=== PATIENT | female | born 1995 | race Caucasian/White ===

== ENCOUNTER 2018-03-23 09:22 | Emergency (ER) | payer OTHER ==
[2018-03-23 09:49] VITALS: BP 110/73
--- NOTE | 2018-03-23 10:25 | ED ---
Lower Extremity - HPI Summary HPI Summary: 22 yr old female with the complaint of right foot pain. Onset yesterday when she kicked a soccer ball. 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 pain is moderate and worse with bearing weight. - History of Current Complaint Chief Complaint: UCLowerExtremity Stated Complaint: RIGHT FOOT INJURY Time Seen by Provider: 03/23/18 09:57 Hx Last Menstrual Period: 03/02/18 Pain Intensity: 10 - Allergies/Home Medications Allergies/Adverse Reactions: Allergies Allergy/AdvReac Type Severity Reaction Status Date / Time No Known Allergies Allergy Verified 03/23/18 09:43 Home Medications: Home Medications Control Pill 1 tab PO DAILY 03/23/18 [History Confirmed 03/23/18] Ibuprofen TAB* [Advil TAB*] 400 mg PO Q6H PRN 03/23/18 [History Confirmed ] PMH/Surg Hx/FS Hx/Imm Hx Respiratory History: Reports: Hx Asthma - Surgical History Surgery Procedure, Year, and Place: Bilateral foot surgery. tonsillectomy Infectious Disease History: No Infectious Disease History: Denies: Traveled Outside the [place] in Last 30 Days - Family History Known Family History: Positive: None - Social History Alcohol Use: None Substance Use Type: Reports: None Smoking Status (MU): Never Smoked Tobacco Review of Systems Constitutional: Negative Positive: Other - foot pain All Other Systems Reviewed And Are Negative: Yes Physical Exam Triage Information Reviewed: Yes Vital Signs On Initial Exam: Initial Vitals Temp Pulse Resp BP Pulse Ox 99.3 F 88 18 110/73 98 03/23/18 09:41 03/23/18 09:41 03/23/18 09:41 03/23/18 09:41 03/23/18 09:41 Vital Signs Reviewed: Yes Appearance: Positive: Well-Appearing, No Pain Distress Skin: Positive: Warm Head/Face: Positive: Normal Head/Face Inspection Eyes: Positive: EOMI ENT: Positive: Normal ENT inspection Neck: Positive: Supple Respiratory/Lung Sounds: Positive: Clear to Auscultation, Breath Sounds Present Cardiovascular: Positive: RRR. Negative: Murmur Musculoskeletal: Positive: Other - there is mild STS right upper medial foot with slight bruising. Mild tenderness as well and this is more dorsal than her old scar over the medial side of the foot, but only about 2.5 cm away from the scar area. Neurological: Positive: Sensory/Motor Intact, Alert, Oriented to Person Place, Time, CN Intact II-III Psychiatric: Positive: Normal - [place] Coma Scale Best Eye Response: 4 - Spontaneous Best Motor Response: 6 - Obeys Commands Best Verbal Response: 5 - Oriented Coma Scale Total: 15 Diagnostics - Vital Signs Vital Signs Temp Pulse Resp BP Pulse Ox 03/23/18 09:41 99.3 F 88 18 110/73 98 - Laboratory Lab Statement: Any lab studies that have been ordered have been reviewed, and results considered in the medical decision making process. - Radiology right foot Xray Interpretation: No Acute Changes Radiology Interpretation Completed By: Radiologist Lower Extremity Course/Dx - Course Course Of Treatment: 22 yr old with prior foot surgery and new injury, but neg xray. She has appointment with her foot surgeon at 8 am tomorrow in [place]. copy of xrays given. - Diagnoses Provider Diagnoses: Foot pain, right Discharge - Sign-Out/Discharge Documenting (check all that apply): Discharge/Admit/Transfer - Discharge Plan Condition: Good Disposition: HOME Patient Education Materials: Foot Sprain (ED), Foot Contusion (ED) Referrals: Non Staff,Doctor [Primary Care Provider] - Ernesto Cedeno MD [Medical Doctor] - Additional Instructions: See your orthopedic, court specialist at your appointment tomorrow in [place] at 8 am. - Billing Disposition and Condition Condition: GOOD Disposition: HOME
--- NOTE | 2018-03-23 10:28 | RAD ---
Indication: Pain across the dorsum of the RIGHT foot after kicking soccer ball yesterday. Previous injury with surgery in 2015. Comparison: No relevant prior exams available on the [facility] PACS for comparison. Technique: AP, lateral, and oblique views RIGHT foot. REPORT AND IMPRESSION: Solitary surgical anchor at the medial margin of the navicula most consistent with a posterior tibial tendon insertion anchor. Negative for fracture or malalignment. No radiographic findings of stress reaction. Mild soft tissue swelling over the medial aspect of the hind and midfoot.
== END 2018-03-23 11:20 | disposition home or self-care (01) ==
LOC: UCCORT 09:22
DX: M79.671 Pain in right foot (principal); Z98.890 Other specified postprocedural states
CPT/HCPCS: 99203; G0463

== ENCOUNTER 2018-05-13 13:16 | Emergency (ER) | payer OTHER ==
[2018-05-13] MEDS ORDERED: NS 0.9% 1000 ML* 1,000 ML IV ONE (13:46)
[2018-05-13] MEDS ORDERED: cefTRIAXone VIAL(*) 1,000 MG VIAL IVPB ONE (13:46)
[2018-05-13] MEDS ORDERED: Ketorolac INJ* 30 MG/ML 1 ML VIAL IV PUSH ONE (13:47)
--- NOTE | 2018-05-13 13:59 | UC ---
Complaint Female HPI - HPI Summary HPI Summary: Suprapubic pain started suddenly while at work going to the [place] to urinate. She says she had been totally fine until then. She denies any recent dysuria, vomiting, fever, gynecologic symptoms, discharge, pain with intercourse. She is monogamous, on ocp, and does not use condoms. She has a hx of terminted by elective . Today she has had gross hematuria. She denies any prior abd surgeries. - History Of Current Complaint Chief Complaint: UCAbdominalPain Stated Complaint: PERSONAL Time Seen by Provider: 05/13/18 13:31 Hx Obtained From: Patient Hx Last Menstrual Period: 05/01/18 Onset/Duration: Sudden Onset, Lasting Hours Timing: Constant, Lasting Hours Severity Initially: Severe Severity Currently: Severe Pain Intensity: 10 Character: Sharp, Cramping Aggravating Factor(s): Nothing Alleviating Factor(s): Nothing Associated Signs And Symptoms: Negative: Vaginal Bleeding/Discharge, Vaginal Discharge, Nausea, Vomiting(# Of Episodes =), Genital Swelling, Genital Blisters , Retained Foregin Body (Specify) - Allergies/Home Medications Allergies/Adverse Reactions: Allergies Allergy/AdvReac Type Severity Reaction Status Date / Time No Known Allergies Allergy Verified 05/13/18 13:28 PMH/Surg Hx/FS Hx/Imm Hx Previously Healthy: No - elective termination of preg. - Surgical History Surgical History: Yes Surgery Procedure, Year, and Place: Bilateral foot surgery. tonsillectomy - Family History Known Family History: Positive: None - Social History Alcohol Use: None Substance Use Type: None Smoking Status (MU): Never Smoked Tobacco Review of Systems Constitutional: Fever Genitourinary: Dysuria - dysuria started early this morning. suprapubic pain started about 1/2 hour ago., Hematuria All Other Systems Reviewed And Are Negative: Yes Physical Exam Triage Information Reviewed: Yes Appearance: Well-Nourished, Pain Distress Vital Signs: Initial Vital Signs Temp 100.2 F 05/13/18 13:25 Pulse 105 05/13/18 13:25 Resp 19 05/13/18 13:25 BP 123/90 05/13/18 13:25 Pulse Ox 100 05/13/18 13:25 Vital Signs Reviewed: Yes Eye Exam: Normal Eyes: Positive: Conjunctiva Clear ENT: Positive: Normal ENT inspection Neck exam: Normal Neck: Positive: Supple, Nontender, No Lymphadenopathy. Negative: Nuchal Rigidity Respiratory: Positive: Normal breath sounds, No respiratory distress, No accessory muscle use. Negative: Respiratory distress, Decreased breath sounds, Accessory muscle use, Crackles, Rhonchi, Stridor, Wheezing Cardiovascular: Positive: No Murmur, Pulses Normal, Brisk Capillary Refill Abdomen Description: Positive: No Organomegaly, Soft. Negative: Distended, Guarding Pelvic Exam: Positive: External Exam Normal, Speculum Exam Normal, Bimanual Exam Normal, No Cerv. Motion Tender, No Masses, Discharge - thin milkly discharge.. Negative: Active Bleeding, Blood, Cervicitis, Lesions, Mass, Tender w/ Cervical Motion, Tender Adnexa, Tender Uterus Musculoskeletal: Positive: Strength Intact, ROM Intact, No Edema Neurological: Positive: Alert, Muscle Tone Normal. Negative: Fatigued Psychological: Positive: Age Appropriate Behavior Skin: Negative: rashes Complaint Female Dx - Course Course Of Treatment: severe sudden pelvic pain 09/09 suggests possible passage of kidney stone. We will also look for hydronephrosis as there are signs of infection and we would want to make sure she does not have infected kidney or stone. However, she does not have flank tenderness nor flank pain or vomiting. We will aggressively work up and manage including IVF and rocephin. Pelvic exam was benign except for copious thin dischage. Trichomonas is also a possibility. No tenderness to suggest PID or toboovarian abcess. Sonograms pending. Sonograms normal. UA reviewed. On re exam, she has suprapubic tenderness but HR is now 96. She is more comfortable appearing and states she feels better. She agrees to return here tomorrow for re eval. She voices understanding and nurses witness. She has no need for ureter stent and no signs of ectopic or abcess. - Differential Dx/Diagnosis Provider Diagnoses: uti. hematuria. abd pain Discharge - Sign-Out/Discharge Documenting (check all that apply): Discharge/Admit/Transfer - Discharge Plan Condition: Good Disposition: HOME Prescriptions: DOXYcycline CAP(*) [DOXYcycline 100MG CAP(*)] 100 mg PO BID #20 cap Patient Education Materials: Hematuria (ED) Referrals: Non Staff,Doctor [Primary Care Provider] - López Talley MD [Medical Doctor] - 2 Days Additional Instructions: REturn here tomorrow for re eval. - Billing Disposition and Condition Condition: GOOD Disposition: Home
--- NOTE | 2018-05-13 14:28 | RAD ---
INDICATION: Pelvic pain and hematuria. COMPARISON: There are no prior studies available for comparison. TECHNIQUE: Multiple real-time images of the kidneys were obtained. FINDINGS: The kidneys are normal in size shape and echogenicity. The right kidney measured 10.6 x 4.7 x 6.0 cm and the left kidney measured 10.1 x 4.1 x 4.3 cm. No significant focal abnormality or hydronephrosis is seen. IMPRESSION: NO EVIDENCE FOR HYDRONEPHROSIS.
--- NOTE | 2018-05-13 14:29 | RAD ---
HISTORY: pelvic pain, eval for tuboovarian abscess. COMPARISONS: None TECHNIQUE: Multiple transverse and longitudinal ultrasound images were obtained of the pelvis using grayscale and color Doppler imaging using the transabdominal transducer. FINDINGS: UTERUS: The uterus measures 6.9 x 4.2 x 5.6 cm. The uterus is normal in shape, size, contour, and echotexture. ENDOMETRIUM: The endometrial stripe is smooth. The endometrium measures 0.7 cm in thickness. CUL-DE-SAC: There is no free fluid within the cul-de-sac. RIGHT OVARY: The right ovary measures 3.1 x 1.9 x 2.7 cm. Normal arterial and venous waveforms are identifiable within the ovary on spectral Doppler imaging. LEFT OVARY: The left ovary measures 2.7 x 1.2 x 2.8 cm. Normal arterial and venous waveforms are identifiable within the ovary on spectral Doppler imaging. There is a 1.6 x 1.1 x 1.7 cm simple left ovarian cyst. BLADDER: The bladder is not well visualized. OTHER: None IMPRESSION: 1. 1.7 CM SIMPLE LEFT OVARIAN CYST. 2. NO SONOGRAPHIC FEATURES OF TORSION. PLEASE NOTE THAT PARTIAL OR INTERMITTENT TORSION MAY BE SONOGRAPHICALLY NORMAL.
[2018-05-13 16:03] VITALS: BP 106/72
[2018-05-13 19:51] LABS: ABS Basophils 0 10^3/ul (0-0.2); ABS Eosinophils 0.1 10^3/ul (0-0.6); ABS Lymphocytes 1.9 10^3/ul (1.0-4.8); ABS Monocytes 0.5 10^3/ul (0-0.8); ABS Neutrophils 4.8 10^3/ul (1.5-7.7); ABS Nucleated RBC 0 10^3/ul; Eosinophil % 0.8 % (0-6); Hematocrit 40 % (35-47); Hemoglobin 13.6 g/dl (12.0-16.0); Lymphocyte % 25.6 % (25-47); Mean Corpuscular HGB Conc 34 g/dl (31-36); Mean Corpuscular Hemoglobin 29 pg (27-31); Mean Corpuscular Volume 86 fL (80-97); Mean Platelet Volume 8.2 um3 (7.4-10.4); Nucleated Red Blood Cells % 0.1; Platelet Count 238 10^3/ul (150-450); Red Blood Count 4.67 10^6/ul (4.00-5.40); Red Cell Distribution Width 13 % (10.5-15); White Blood Count 7.3 10^3/ul (3.5-10.8)
[2018-05-13 20:00] LABS: EGFR Non-African American 88.9 (>60)
--- NOTE | 2018-05-15 11:43 | UC ---
- Progress Note Progress Note: RN to call pt. + bact vaginosis, + daniel. Rx metrogel, Rx diflucan. Discharge - Sign-Out/Discharge Documenting (check all that apply): Post-Discharge Follow Up - Discharge Plan Condition: Good Disposition: HOME Prescriptions: DOXYcycline CAP(*) [DOXYcycline 100MG CAP(*)] 100 mg PO BID #20 cap Fluconazole [Diflucan 150 MG (NF)] 150 mg PO DAILY #2 tab metroNIDAZOLE VAGINAL 0.75%* 1 applic VAGINAL BEDTIME #2 tube Patient Education Materials: Hematuria (ED) Forms: *Work Release Referrals: Non Staff,Doctor [Primary Care Provider] - López Talley MD [Medical Doctor] - 2 Days Additional Instructions: REturn here tomorrow for re eval. - Billing Disposition and Condition Condition: GOOD Disposition: Home
== END 2018-05-13 16:10 | disposition home or self-care (01) ==
LOC: UCCORT 13:16
DX: N39.0 Urinary tract infection, site not specified (principal); R31.0 Gross hematuria; R10.9 Unspecified abdominal pain
CPT/HCPCS: 36415; 76775; 76856; 80053; 81003; 84702; 85025; 87077; 87086; 87480; 87491; 87510; 87591; 87660; 87661; 96361; 96365; 96375; 99212; G0463; J0696; J1885

== ENCOUNTER 2018-06-30 08:08 | Emergency (ER) | payer OTHER ==
[2018-06-30 08:23] VITALS: BP 122/84
--- NOTE | 2018-06-30 09:41 | UC ---
Back Pain HPI - HPI Summary HPI Summary: lower back pain x 3 days hx of chronic back pain , been worse for the past 3 days. no known injury pain is sharp , no radiation of the pain . no fever, no chills, no n/v/d/c , no urinary sx has been having light pink discharge, has been missing her BCP - History of Current Complaint Chief Complaint: UCGU Stated Complaint: BACK PAIN/PERSONAL Time Seen by Provider: 06/30/18 08:21 Hx Obtained From: Patient Hx Last Menstrual Period: 06/09/18 Onset/Duration: Gradual Onset, Lasting Days - 3, Still Present Timing: Constant Severity Initially: Severe Severity Currently: Severe Pain Intensity: 7 Pain Scale Used: 0-10 Numeric Back Pain: Is Discrete @ - lower back pain Character: Sharp Aggravating Factor(s): Movement, Lifting, Bending, Walking, Cough Alleviating Factor(s): Rest Associated Signs And Symptoms: Negative: Swelling, Redness, Bruising, Fever, Weakness, Numbness, Tingling, Abdominal Pain, Flank Pain, Bladder Incontinence, Bowel Incontinence - Allergies/Home Medications Allergies/Adverse Reactions: Allergies Allergy/AdvReac Type Severity Reaction Status Date / Time No Known Allergies Allergy Verified 05/13/18 13:28 PMH/Surg Hx/FS Hx/Imm Hx - Additional Past Medical History Additional PMH: chronic back pain - Surgical History Surgical History: Yes Surgery Procedure, Year, and Place: Bilateral foot surgery. tonsillectomy - Family History Known Family History: Positive: None Negative: Diabetes - Social History Alcohol Use: None Substance Use Type: None Smoking Status (MU): Never Smoked Tobacco Review of Systems Constitutional: Negative Skin: Negative Eyes: Negative ENT: Negative Genitourinary: Abnormal Bleeding Motor: Negative Neurovascular: Negative Musculoskeletal: Myalgia - lower back pain Is Patient Immunocompromised?: No All Other Systems Reviewed And Are Negative: Yes Physical Exam Triage Information Reviewed: Yes Appearance: Well-Appearing, No Pain Distress, Well-Nourished Vital Signs: Initial Vital Signs Temp 98.8 F 06/30/18 08:16 Pulse 87 06/30/18 08:16 Resp 14 06/30/18 08:16 BP 122/84 06/30/18 08:16 Pulse Ox 100 06/30/18 08:16 Vital Signs Reviewed: Yes Eye Exam: Normal Eyes: Positive: Conjunctiva Clear ENT: Positive: Normal ENT inspection, Hearing grossly normal, Pharynx normal Neck exam: Normal Neck: Positive: Supple, Nontender, No Lymphadenopathy Respiratory: Positive: Chest non-tender, Lungs clear, Normal breath sounds, No respiratory distress Cardiovascular: Positive: RRR, No Murmur, Pulses Normal Abdomen Description: Positive: Nontender, Soft. Negative: CVA Tenderness (R), CVA Tenderness (L), Distended, Guarding Bowel Sounds: Positive: Present Musculoskeletal: Positive: Other: - lower back : no swelling, no erythema, + tender to touch, pain with flexion and extension Neurological: Positive: Alert Skin Exam: Normal Back Pain Course/Dx - Differential Dx/Diagnosis Provider Diagnoses: lower back pain. vaginal bleeding Discharge - Sign-Out/Discharge Documenting (check all that apply): Patient Departure - Discharge Plan Condition: Stable Disposition: HOME Prescriptions: Naproxen [Naproxen 500 mg tab] 500 mg PO BID #14 tablet Patient Education Materials: Menorrhagia (ED), Chronic Back Pain (ED) Forms: *Work Release Referrals: No Primary Care Phys,NOPCP [Primary Care Provider] - 7 Days - Billing Disposition and Condition Condition: STABLE Disposition: Home
== END 2018-06-30 09:36 | disposition home or self-care (01) ==
LOC: UCCORT 08:08
DX: M54.5 Low back pain (principal); G89.29 Other chronic pain; N93.9 Abnormal uterine and vaginal bleeding, unspecified
CPT/HCPCS: 81003; 84702; 99212; G0463

== ENCOUNTER 2018-11-26 10:11 | Emergency (ER) | payer OTHER ==
[2018-11-26 13:14] VITALS: BP 117/74
--- NOTE | 2018-11-26 13:33 | UC ---
Back Pain HPI - HPI Summary HPI Summary: Pt presents with c/o "chronic low back pain". Pt denies injury or possible injury due to repeated bending or lifting. Pt denies numbness, tingling or loss f bowel or bladder control. Pt also denies any urinary symptoms. - History of Current Complaint Chief Complaint: UCBackPain Stated Complaint: BACK PAIN Time Seen by Provider: 11/26/18 13:22 Hx Obtained From: Patient Hx Last Menstrual Period: 3 months ago - BC ?: No Onset/Duration: Gradual Onset, Lasting Weeks, Still Present Timing: Constant Severity Initially: Moderate Severity Currently: Severe Pain Intensity: 9 Back Pain: Is Discrete @ - low back Character: Dull, Aching, Stiffness Aggravating Factor(s): Movement Alleviating Factor(s): Nothing Associated Signs And Symptoms: Positive: Negative - Risk Factors AAA Risk Factors: Negative TAD Risk Factors: Negative Cauda Equina Risk Factors: Negative - Allergies/Home Medications Allergies/Adverse Reactions: Allergies Allergy/AdvReac Type Severity Reaction Status Date / Time No Known Allergies Allergy Verified 11/26/18 13:14 PMH/Surg Hx/FS Hx/Imm Hx Previously Healthy: Yes - Surgical History Surgical History: Yes Surgery Procedure, Year, and Place: Bilateral foot surgery. tonsillectomy - Family History Known Family History: Positive: None Negative: Diabetes - Social History Occupation: Employed Full-time Lives: With Family Alcohol Use: None Substance Use Type: None Smoking Status (MU): Never Smoked Tobacco Have You Smoked in the Last Year: No Review of Systems All Other Systems Reviewed And Are Negative: Yes Constitutional: Positive: Negative Skin: Positive: Negative Eyes: Positive: Negative ENT: Positive: Negative Respiratory: Positive: Negative Cardiovascular: Positive: Negative Gastrointestinal: Positive: Negative Genitourinary: Positive: Negative Motor: Positive: Negative Neurovascular: Positive: Negative Musculoskeletal: Positive: Myalgia Psychological: Positive: Negative Is Patient Immunocompromised?: No Physical Exam Triage Information Reviewed: Yes Appearance: Well-Appearing, No Pain Distress - pt is sitting comfortably on exam table and able to move on and off table without difficulty or assistance. Vital Signs: Initial Vital Signs Temp 98.5 F 11/26/18 13:10 Pulse 115 11/26/18 13:10 Resp 20 11/26/18 13:10 BP 117/74 11/26/18 13:10 Pulse Ox 100 11/26/18 13:10 Vital Signs Reviewed: Yes Eye Exam: Normal ENT Exam: Normal Dental Exam: Normal Neck exam: Normal Respiratory Exam: Normal Cardiovascular Exam: Normal Musculoskeletal Exam: Normal Musculoskeletal: Positive: Strength Intact, ROM Intact, No Edema Neurological Exam: Normal Psychological Exam: Normal Skin Exam: Normal Back Pain Course/Dx - Differential Dx/Diagnosis Differential Diagnosis/HQI/PQRI: Herniated Disc, Strain, Sprain Provider Diagnosis: Low back pain Discharge - Sign-Out/Discharge Documenting (check all that apply): Patient Departure All imaging exams completed and their final reports reviewed: No Studies - Discharge Plan Condition: Stable Disposition: HOME Prescriptions: Cyclobenzaprine TAB* [Flexeril 10 MG TAB*] 10 mg PO Q8H PRN #21 tab PRN Reason: Pain Ibuprofen TAB* [Motrin TAB* 800 MG] 800 mg PO Q8H PRN #21 tab PRN Reason: Pain Patient Education Materials: Back Pain (ED), Lower Back Exercises (ED) Referrals: No Primary Care Phys,NOPCP [Primary Care Provider] - [facility] [Outside] - As Soon As Possible - Billing Disposition and Condition Condition: STABLE Disposition: Home - Attestation Statements Provider Attestation: Per institutional requirements, I have reviewed the chart, however, I was not consulted specifically or made aware of this patient by the midlevel provider. I did not personally evaluate, interact with , or disposition this patient.
== END 2018-11-26 13:45 | disposition home or self-care (01) ==
LOC: UCCORT 10:11
DX: M54.5 Low back pain (principal)
CPT/HCPCS: 99212; G0463

== ENCOUNTER 2019-01-10 07:06 | Emergency (ER) | payer OTHER ==
[2019-01-10 07:27] VITALS: BP 106/63
[2019-01-10] MEDS ORDERED: Ibuprofen TAB* 600 MG PO ONE (07:50)
--- NOTE | 2019-01-10 07:52 | UC ---
Throat Pain/Nasal Emanuel HPI - HPI Summary HPI Summary: 23-year-old woman 23-year-old woman comes in with 2 days of sore throat fevers chills. She also has some runny nose and a frontal headache. No chest congestion she does have somewhat of a cough. Not a smoker. No history of asthma. She tried some ibuprofen yesterday that did help with her fever and headache. No stiff neck. Denies generalized myalgias. - History of Current Complaint Chief Complaint: UCGeneralIllness Stated Complaint: THROAT,COUGH Time Seen by Provider: 01/10/19 07:41 Hx Last Menstrual Period: 12/29/18 Pain Intensity: 10 - Allergies/Home Medications Allergies/Adverse Reactions: Allergies Allergy/AdvReac Type Severity Reaction Status Date / Time No Known Allergies Allergy Verified 01/10/19 07:21 PMH/Surg Hx/FS Hx/Imm Hx Previously Healthy: Yes - Surgical History Surgical History: Yes Surgery Procedure, Year, and Place: Bilateral foot surgery. tonsillectomy - Family History Known Family History: Positive: None, Non-Contributory Negative: Diabetes - Social History Alcohol Use: None Substance Use Type: None Smoking Status (MU): Never Smoked Tobacco Have You Smoked in the Last Year: No Review of Systems All Other Systems Reviewed And Are Negative: Yes Constitutional: Positive: Fever, Chills Skin: Positive: Negative Eyes: Positive: Negative ENT: Positive: Sore Throat, Nasal Discharge, Sinus Congestion Respiratory: Positive: Negative Cardiovascular: Positive: Negative Gastrointestinal: Positive: Negative Motor: Positive: Negative Neurovascular: Positive: Negative Musculoskeletal: Positive: Negative Neurological: Positive: Headache Psychological: Positive: Negative Is Patient Immunocompromised?: No Physical Exam Triage Information Reviewed: Yes Appearance: No Pain Distress, Well-Nourished, Ill-Appearing - MILD Vital Signs: Initial Vital Signs Temp 102.4 F 01/10/19 07:22 Pulse 106 01/10/19 07:22 Resp 16 01/10/19 07:22 BP 106/63 01/10/19 07:22 Pulse Ox 100 01/10/19 07:22 Vital Signs Reviewed: Yes Eye Exam: Normal Eyes: Positive: Conjunctiva Clear ENT: Positive: Pharyngeal erythema, Nasal congestion, Nasal drainage, TMs normal Neck exam: Normal Neck: Positive: Supple Respiratory: Positive: Lungs clear, Normal breath sounds, No respiratory distress Cardiovascular: Positive: Tachycardia Musculoskeletal Exam: Normal Musculoskeletal: Positive: Strength Intact, ROM Intact Neurological Exam: Normal Neurological: Positive: Alert, Muscle Tone Normal Psychological Exam: Normal Psychological: Positive: Age Appropriate Behavior Skin Exam: Normal Throat Pain/Nasal Course/Dx - Course Course Of Treatment: DISCUSSED VIRAL VERSES BACTERIAL INFECTION AND THE ROLE OF ANTIBIOTICS. THE PATIENT WISHES TO BE ON ANTIBIOTIC AT THIS TIME. - Differential Dx/Diagnosis Provider Diagnosis: Pharyngitis Discharge - Sign-Out/Discharge Documenting (check all that apply): Patient Departure All imaging exams completed and their final reports reviewed: No Studies - Discharge Plan Condition: Stable Disposition: HOME Prescriptions: Amoxicillin PO (*) [Amoxicillin 500 MG CAP*] 500 mg PO TID #30 cap Patient Education Materials: Pharyngitis (ED), Fever in Adults (ED) Referrals: [facility] [place] [Outside] Additional Instructions: FOLLOW UP WITH YOUR DOCTOR IF NOT COMPLETELY IMPROVED. GET RECHECKED FOR ANY WORSENING OF YOUR CONDITION OR QUESTIONS OR CONCERNS. - Billing Disposition and Condition Condition: STABLE Disposition: Home
== END 2019-01-10 07:58 | disposition home or self-care (01) ==
LOC: UCCORT 07:06
DX: J02.9 Acute pharyngitis, unspecified (principal); R09.81 Nasal congestion
CPT/HCPCS: 87651; 99212; A9270-GY; G0463

== ENCOUNTER 2019-07-16 09:49 | Emergency (ER) | payer SELFPAY ==
--- NOTE | 2019-07-16 10:02 | UC ---
Ear Complaint HPI - HPI Summary HPI Summary: 23-year-old female who has bilateral ear pain, mild scratchy throat, irritated eyes. - History of Current Complaint Stated Complaint: NASAL/BILATERAL EYE AND EAR COMPLAINT Time Seen by Provider: 07/16/19 10:01 Hx Obtained From: Patient Hx Last Menstrual Period: 12/29/18 ?: No Onset/Duration: Gradual Onset Severity Initially: Mild Severity Currently: Mild Aggravating Factors: Nothing Alleviating Factors: Nothing Associated Signs/Symptoms: Positive: URI Symptoms - Allergies/Home Medications Allergies/Adverse Reactions: Allergies Allergy/AdvReac Type Severity Reaction Status Date / Time No Known Allergies Allergy Verified 07/16/19 10:06 Home Medications: Home Medications Norethindrone [Jencycla] 0.35 mg PO BEDTIME 07/16/19 [History Confirmed 07/16/19 ] PMH/Surg Hx/FS Hx/Imm Hx Previously Healthy: Yes - Surgical History Surgical History: Yes Surgery Procedure, Year, and Place: Bilateral foot surgery. tonsillectomy - Family History Known Family History: Positive: None, Non-Contributory Negative: Diabetes - Social History Occupation: Employed Part-time Alcohol Use: None Substance Use Type: None Smoking Status (MU): Never Smoked Tobacco Have You Smoked in the Last Year: No Review of Systems All Other Systems Reviewed And Are Negative: Yes Eyes: Positive: Eye Redness ENT: Positive: Ear Ache Is Patient Immunocompromised?: No Physical Exam Triage Information Reviewed: Yes Appearance: Well-Appearing, No Pain Distress, Well-Nourished Vital Signs Reviewed: Yes Eyes: Positive: Conjunctiva Clear - PERRLA, EOMI ENT: Positive: Hearing grossly normal, Pharynx normal, TMs normal, Uvula midline Neck: Positive: Supple, Nontender, No Lymphadenopathy Respiratory: Positive: Lungs clear, Normal breath sounds, No respiratory distress, No accessory muscle use Cardiovascular: Positive: RRR, No Murmur, Pulses Normal, Brisk Capillary Refill Musculoskeletal: Positive: Strength Intact, ROM Intact Neurological: Positive: Alert, Muscle Tone Normal Psychological Exam: Normal Skin Exam: Normal Ear Complaint Course/Dx - Course Course Of Treatment: Patient is comfortable here. She was given a work note to return to work tomorrow. She may take whatever [id number] cold medicines as directed. She is to go home and rest. [facility]. - Differential Dx/Diagnosis Provider Diagnosis: URI (upper respiratory infection) Discharge - Sign-Out/Discharge Documenting (check all that apply): Patient Departure All imaging exams completed and their final reports reviewed: No Studies - Discharge Plan Condition: Good Disposition: HOME Patient Education Materials: Upper Respiratory Infection (DC) Forms: *Work Release Referrals: No Primary Care Phys,NOPCP [Primary Care Provider] - [facility] [Outside] Additional Instructions: Increase fluids, go home and rest, may take Tylenol every 4 hours and alternate with Motrin every 8 hours as needed for pain. [facility] in 3 or 4 days if no improvement. - Billing Disposition and Condition Condition: GOOD Disposition: Home
[2019-07-16 10:06] VITALS: BP 121/86
== END 2019-07-16 14:19 | disposition home or self-care (01) ==
LOC: UCCORT 09:49
DX: J06.9 Acute upper respiratory infection, unspecified (principal)
CPT/HCPCS: 99211; G0463

== ENCOUNTER 2019-07-31 15:04 | Emergency (ER) | payer MEDICAID, OTHER ==
[2019-07-31 15:23] VITALS: BP 130/82
--- NOTE | 2019-07-31 15:33 | UC ---
General HPI - HPI Summary HPI Summary: PT NOTICED A SORE BUMP ON HER L FOREARM. NO HX INJURY OR KNOWN INSECT BITE. - History of Current Complaint Chief Complaint: [place] Stated Complaint: LEFT ARM SKIN CONCERN Time Seen by Provider: 07/31/19 15:25 Hx Obtained From: Patient Hx Last Menstrual Period: 12/29/18 Timing: Constant Pain Intensity: 8 Associated Signs & Symptoms: Negative: Fever - Allergy/Home Medications Allergies/Adverse Reactions: Allergies Allergy/AdvReac Type Severity Reaction Status Date / Time No Known Allergies Allergy Verified 07/31/19 15:23 PMH/Surg Hx/FS Hx/Imm Hx Previously Healthy: Yes - Surgical History Surgical History: Yes Surgery Procedure, Year, and Place: Bilateral foot surgery. tonsillectomy - Family History Known Family History: Positive: None, Non-Contributory Negative: Diabetes - Social History Alcohol Use: None Substance Use Type: None Smoking Status (MU): Never Smoked Tobacco Have You Smoked in the Last Year: No Review of Systems All Other Systems Reviewed And Are Negative: No Constitutional: Negative: Fever, Chills Skin: Positive: Rash Musculoskeletal: Negative: Arthralgia, Decreased ROM Physical Exam Triage Information Reviewed: Yes Appearance: Well-Appearing Vital Signs: Initial Vital Signs Temp 99.9 F 07/31/19 15:19 Pulse 98 07/31/19 15:19 Resp 16 07/31/19 15:19 BP 130/82 07/31/19 15:19 Pulse Ox 100 07/31/19 15:19 Vital Signs Reviewed: Yes Musculoskeletal: Positive: Other: - L mid-forearm: 1.5cm area that is pink and slightly raises c/w insect bite/sting. minor purple bruise adjacent to that. no streaking. arm has full s/v/m function. Neurological: Positive: Alert Psychological: Positive: Age Appropriate Behavior Skin Exam: Normal Course/Dx - Differential Dx - Multi-Symptom Differential Diagnoses: Other - no concern for any type of infection, infestation or contact dermatitis. - Diagnoses Provider Diagnosis: Rash Discharge ED - Sign-Out/Discharge Documenting (check all that apply): Patient Departure All imaging exams completed and their final reports reviewed: No Studies - Discharge Plan Condition: Stable Disposition: HOME Patient Education Materials: Insect Bite or Sting (ED), Contusion in Adults (ED ) Forms: *Gen. Provider Communication Referrals: Thais Baltazar [Primary Care Provider] - If Needed - Billing Disposition and Condition Condition: STABLE Disposition: Home
== END 2019-07-31 15:42 | disposition home or self-care (01) ==
LOC: UCCORT 15:04
DX: R21 Rash and other nonspecific skin eruption (principal)
CPT/HCPCS: 99211; G0463

== ENCOUNTER 2019-08-01 15:01 | Emergency (ER) | payer MEDICAID, OTHER ==
[2019-08-01 15:54] VITALS: BP 127/75
--- NOTE | 2019-08-01 16:12 | UC ---
Upper Extremity HPI - HPI Summary HPI Summary: Pt presents with c/o left forearm pain and discoloration that began two days ago. Pt denies injury or exposure to irritant or possible burn. Pt was seen here yesterday and was given possible Diagnosis of insect bite.Pt does not remember injuring arm or insect bite. - History of Current Complaint Chief Complaint: UCUpperExtremity Stated Complaint: LT ARM SKIN CONCERN Time Seen by Provider: 08/01/19 15:45 Hx Obtained From: Patient Hx Last Menstrual Period: "LAST MONTH"; ON BCP ?: No Onset/Duration: Sudden Onset, Lasting Days, Still Present Severity Initially: Mild Severity Currently: Moderate Pain Intensity: 7 Location Of Pain: Is Discrete @ - left medial, mid forearm Character: Dull, Aching Aggravating Factor(s): Other - palpation Alleviating Factor(s): Rest Associated Signs And Symptoms: Positive: Bruising Related History: Dominant Hand Right - Risk Factors Non-Orthopedic Risk Factor: Negative DVT Risk Factors: Oral Contraceptives Septic Arthritis Risk Factor: Negative Compartment Syndrome Risk Factors: Pain - Allergies/Home Medications Allergies/Adverse Reactions: Allergies Allergy/AdvReac Type Severity Reaction Status Date / Time No Known Allergies Allergy Verified 08/01/19 15:49 Home Medications: Home Medications Amoxicillin PO (*) [Amoxicillin 500 MG CAP*] 500 mg PO BID 08/01/19 [History Confirmed 08/01/19] Ibuprofen TAB* [Motrin TAB* 600 MG] 600 mg PO Q6H PRN 08/01/19 [History Confirmed 08/01/19] PMH/Surg Hx/FS Hx/Imm Hx Previously Healthy: Yes - Surgical History Surgical History: Yes Surgery Procedure, Year, and Place: Bilateral foot surgery. tonsillectomy - Family History Known Family History: Positive: None, Non-Contributory Negative: Diabetes - Social History Occupation: Employed Full-time Lives: With Family Alcohol Use: None Substance Use Type: None Smoking Status (MU): Never Smoked Tobacco Have You Smoked in the Last Year: No - Immunization History Vaccination Up to Date: Yes Review of Systems All Other Systems Reviewed And Are Negative: Yes Constitutional: Positive: Negative Skin: Positive: Bruising - left medial mid forearm Eyes: Positive: Negative ENT: Positive: Negative Respiratory: Positive: Negative Cardiovascular: Positive: Negative Gastrointestinal: Positive: Negative Genitourinary: Positive: Negative Motor: Positive: Negative Neurovascular: Positive: Negative Musculoskeletal: Positive: Myalgia Neurological: Positive: Negative Psychological: Positive: Negative Is Patient Immunocompromised?: No Physical Exam Triage Information Reviewed: Yes Appearance: Well-Appearing Vital Signs: Initial Vital Signs Temp 98 F 08/01/19 15:50 Pulse 100 08/01/19 15:50 Resp 16 08/01/19 15:50 BP 127/75 08/01/19 15:50 Pulse Ox 100 08/01/19 15:50 Vital Signs Reviewed: Yes Eye Exam: Normal ENT Exam: Normal ENT: Positive: Hearing grossly normal Dental Exam: Normal Neck exam: Normal Respiratory: Positive: No respiratory distress Musculoskeletal Exam: Normal Musculoskeletal: Positive: Strength Intact, ROM Intact, Other: - 3 cm ecchymotic area on left medial mid forearm. Pt states ecchymotic area is painful. Neurological Exam: Normal Psychological Exam: Normal Skin Exam: Other - bruising left medial mid forearm. Diagnostics - Radiology No standard instances Radiology Interpretation Completed By: Radiologist - Air Brake Adjuster: Ofelia Herrera S, ([id number]) Still Photographer: HAZEL, ([email or web address]) Report Date: 2018 16:03:00 Report Status: Final ======= Start of Report Content Patient Name: AARON PAT Medical Record#: [id number] Ordering Physician: Jocelyn Freeman CONSULTING ANALYST Acct.#: [id number] : 1995 Age: 23 Sex: F Location: [facility] - [place] Exam Date: 08/01/19 1603 ADM Status: REG ER Order Information: FOREARM LEFT 2 VWS Accession Number: [id number] CPT: 90713 Indication: Left forearm pain. 2 views of the left forearm demonstrates no fracture or dislocation. No other bone or joint abnormalities identified. IMPRESSION: No fracture of the left forearm is noted. <Electronically signed by Ofelia Herrera MD in OV> 08/01/191633 Dictated By: Ofelia Herrera MD Dictated Date/Time: 08/01/191615 Transcribed Date/Time: 08/01/191615 Copy to: CC:Jeff Gtz MD; Jocelyn Kirkpatrick CONSULTING ANALYST; Thais BAKER Imaging - [facility] - [facility] Imaging - [facility] [address] [address] ph [phone] ph ([phone]) ph ([phone]) ==== End of Report Content Upper Extremity Course/Dx - Differential Dx/Diagnosis Differential Diagnosis/HQI/PQRI: Contusion Provider Diagnosis: Contusion of left forearm Discharge ED - Sign-Out/Discharge Documenting (check all that apply): Patient Departure All imaging exams completed and their final reports reviewed: Yes - Discharge Plan Condition: Stable Disposition: HOME Patient Education Materials: Contusion in Adults (ED) Referrals: Bismark Stein MD [Medical Doctor] - If Needed Thais Baltazar [Primary Care Provider] - If Needed Additional Instructions: Please follow up with Dr. Stein as needed. - Billing Disposition and Condition Condition: STABLE Disposition: Home - Attestation Statements Provider Attestation: I was available for consult. This patient was seen by the JW. The patient was not presented to , seen by or examined by mo -Jeff Gtz MD
== END 2019-08-01 16:46 | disposition home or self-care (01) ==
LOC: UCCORT 15:01
DX: S50.12XA Contusion of left forearm, initial encounter (principal); X58.XXXA Exposure to other specified factors, initial encounter; Y92.9 Unspecified place or not applicable
CPT/HCPCS: 99211; G0463

== ENCOUNTER 2019-08-06 09:39 | Emergency (ER) | payer MEDICAID, OTHER ==
[2019-08-06 10:33] VITALS: BP 114/72
--- NOTE | 2019-08-06 10:41 | UC ---
Dental HPI - HPI Summary HPI Summary: 23 y/o female presents to the urgent care c/o wisdom teeth pain on both sides for the past 3 months. Pt has appt with dentist for extraction in 3 weeks. Pt states Her PCP DR Hardy has Rx Amoxicillin PO and Vycodin PO for her dental pain. She still has 3 tabs of Amoxicillin left, but run out of pain medication , She has also been taken Ibuprofen 600mg PO , but dental pain has increase for the past 2 days. She can't sleep or eat because the pain is so bad. Pt went some time without insurance and that is why the issue has been so long. Pt run out of the Vicodin a few days ago. Dental pain is 10/10 in all his wisdom tooth. Pt has decrease appetite, but has been drinking fluids. She has an appt schedule in 3 weeks for her wisdom tooth to be extracted. Pt denies fever, trismus, PADGETT, dizziness, SOB, chest pain, abdominal pain, N/V/D. or neck pain or rash. - History of Current Complaint Chief Complaint: UCDentalProblem Stated Complaint: DENTAL COMPLAINT Time Seen by Provider: 08/06/19 10:40 Hx Obtained From: Patient Hx Last Menstrual Period: 07/15/19 - irregular r/t control ?: No Onset/Duration: Gradual Onset, Lasting Weeks - 3 months, Still Present, Worse Since - 2 days w/ worse dental pain depsite taking pain medications and amoxicillin Severity: Severe Pain Intensity: 10 Pain Scale Used: 0-10 Numeric Aggravating Factor(s): Chewing Alleviating Factor(s): Other (see comments) - Amoxicillin PO and Vycodin - Allergies/Home Medications Allergies/Adverse Reactions: Allergies Allergy/AdvReac Type Severity Reaction Status Date / Time No Known Allergies Allergy Verified 08/06/19 10:34 PMH/Surg Hx/FS Hx/Imm Hx Previously Healthy: Yes Respiratory History: Asthma - Surgical History Surgical History: Yes Surgery Procedure, Year, and Place: Bilateral foot surgery. tonsillectomy - Family History Known Family History: Positive: None - Pt denies FMHX, Non-Contributory Negative: Diabetes - Social History Occupation: Student Lives: With Family Alcohol Use: None Substance Use Type: None Smoking Status (MU): Never Smoked Tobacco Have You Smoked in the Last Year: No - Immunization History Vaccination Up to Date: Yes Review of Systems All Other Systems Reviewed And Are Negative: Yes Constitutional: Positive: Negative Skin: Positive: Negative Eyes: Positive: Negative ENT: Positive: Dental Pain - all wisdom dental pain Respiratory: Positive: Negative Cardiovascular: Positive: Negative Gastrointestinal: Positive: Negative Genitourinary: Positive: Negative Motor: Positive: Negative Neurovascular: Positive: Negative Musculoskeletal: Positive: Negative Neurological: Positive: Negative Psychological: Positive: Negative Is Patient Immunocompromised?: No Physical Exam - Summary Physical Exam Summary: Vital Signs Reviewed: Yes General: Well-Appearing, Well-Nourished female sitting in the examining table w /o any respiratory or pain distress Eyes: Positive: Conjunctiva Clear - PERRLA, EOMI, ENT: Positive: Normal ENT inspection, Hearing grossly normal, Pharynx normal, TMs normal - B/L external ear canals clear,. Negative: Tonsillar swelling, Tonsillar exudate, Trismus Dental: Positive: posterior gum and w/o gingival swelling or erythema or wisdom molars, tenderness to percussion an all 4 areas. No anterior Cervical Lymphadenopathy. Neck: Positive: Supple Respiratory: Positive: Chest non-tender, Lungs clear, Normal breath sounds, No respiratory distress Cardiovascular: Positive: RRR, No Murmur, Pulses Normal, Brisk Capillary Refill Abdomen Description: Positive: Nontender, No Organomegaly, Soft. Negative: CVA Tenderness (R), CVA Tenderness (L) Bowel Sounds: Positive: Present Musculoskeletal: Positive: Strength Intact, ROM Intact, No Edema Neurological Exam: Normal Psychological Exam: Normal Skin Exam: Normal Triage Information Reviewed: Yes Vital Signs: Initial Vital Signs Temp 98.5 F 08/06/19 10:28 Pulse 85 08/06/19 10:28 Resp 16 08/06/19 10:28 BP 114/72 08/06/19 10:28 Pulse Ox 99 08/06/19 10:28 Dental Complaint Course/Dx - Course Course Of Treatment: 23 y/o female presents to the urgent care c/o wisdom teeth pain on both sides for the past 3 months. Pt has appt with dentist for extraction in 3 weeks. Pt states Her PCP DR Hardy has Rx Amoxicillin PO and Vycodin PO for her dental pain. She still has 3 tabs of Amoxicillin left, but run out of pain medication , She has also been taken Ibuprofen 600mg PO , but dental pain has increase for the past 2 days. She can't sleep or eat because the pain is so bad. Pt went some time without insurance and that is why the issue has been so long. Pt run out of the Vycodin a few days ago. Dental pain is 10/10 in all his wisdom tooth. Pt has decrease appetite, but has been drinking fluids. She has an appt schedule in 3 weeks for her wisdom tooth to be extracted. Pt denies fever, trismus, PADGETT, dizziness, SOB, chest pain, abdominal pain, N/V/D. or neck pain or rash. Hx obtained. Pt w/o any abscess on examination. Pt w/ dental pain. I-Stop#[id number] and has been Rx Vycodin and Tangent since 07/21/2019 by her PCP. I educated Pt in how to control dental pain and alternate w/ Tylenol and NSAIDs and use ice too. Pt given viscous Lidocaine at the clinic to alleviate symptoms. and Rx the same and Naproxen PO for pain. Advised to finish Amoxicillin and f/u with Dentist or her PCP as soon as possible for further evaluation and treatment. Pt understood and agreed with plan of care. Pt Left the clinic ambulating. - Differential Dx/Diagnosis Differential Diagnosis/Dx: Dental Abscess, Dental Caries, Fractured Tooth, Odontogenic Pain, Peridontic Disease, Peritonsillar Abcess Provider Diagnosis: Pain, dental Discharge ED - Sign-Out/Discharge Documenting (check all that apply): Patient Departure - D/C home All imaging exams completed and their final reports reviewed: No Studies - Discharge Plan Condition: Stable Disposition: HOME Prescriptions: Lidocaine 2% VISCOUS* [Xylocaine 2% Viscous*] 15 ml SWISH SPIT Q6H PRN #1 btl PRN Reason: dental pain Naproxen TAB* [Naprosyn 250 mg TAB*] 250 mg PO Q8H PRN #30 tab PRN Reason: dental pain Patient Education Materials: Toothache (ED) Referrals: Thais Baltazar [Primary Care Provider] - 2 Days Additional Instructions: 1- Take Naproxen PO as instructed after meals to alleviate pain and swelling. Take the Viscous Lidocaine as directed to alleviate dental pain 2-Finish taking yoru Amoxicillin as directed by your PCP 3- F/u with your Dentist or your PCP or Dental List provided as soon as possible for further treatment. 4- If symptoms do not improve or worsen please return to the urgent care or f/u with your PCP for further evaluation and treatment - Billing Disposition and Condition Condition: STABLE Disposition: Home
[2019-08-06] MEDS ORDERED: Lidocaine 2% VISCOUS* 15 ML UDC SWISH SPIT ONE (10:59)
== END 2019-08-06 11:10 | disposition home or self-care (01) ==
LOC: UCCORT 09:39
DX: K08.89 Other specified disorders of teeth and supporting structures (principal)
CPT/HCPCS: 99212; G0463

== ENCOUNTER 2020-02-29 08:00 | Emergency (ER) | payer MEDICAID, OTHER ==
[2020-02-29 08:36] VITALS: BP 116/80
--- NOTE | 2020-02-29 08:36 | UC ---
Neck Pain HPI - HPI Summary HPI Summary: Patient presents to urgent care stating last night she developed some muscle spasm and tightness in the left posterior side of her neck. Patient states she was watching TV looking up and down at her cell phone when pain started. . Patient states positional of comfort is head flexed. Pain increases with extension and left lateral rotation causes increased pain in the left lateral paraspinal area. No paresthesias, weakness. Patient took Motrin last night with some mild improvement. No analgesia this morning. Patient has had problems with back spasms in her low back but never in her neck. Patient denies any trauma. Patient without any headache, sore throat, ear pain. No fever, chills, rash. No cough or shortness of breath. Patient with no analgesic today. Patient has taken Flexeril in the past. Patient's medications is in the EMR reviewed this visit. STates not - History of Current Complaint Stated Complaint: NECK PAIN Time Seen by Provider: 02/29/20 08:33 Hx Obtained From: Patient Hx Last Menstrual Period: 07/15/19 - irregular r/t control - Allergies/Home Medications Allergies/Adverse Reactions: Allergies Allergy/AdvReac Type Severity Reaction Status Date / Time nickel Allergy Severe Rash Verified 02/29/20 08:38 coconut,kiwi Allergy Difficulty Uncoded 02/29/20 08:39 Breathing Home Medications: Home Medications Norethindrone [Jencycla] 0.35 mg PO BEDTIME 07/16/19 [History Confirmed 02/29/20 ] Ibuprofen TAB* [Motrin TAB* 600 MG] 800 mg PO Q6H PRN 08/01/19 [History Confirmed 02/29/20] Cyclobenzaprine (NF) [Cyclobenzaprine 5 MG (NF)] 5 mg PO TID PRN #10 tab [Rx] Ibuprofen 600 mg PO Q6HR PRN #20 tablet 02/29/20 [Rx] PMH/Surg Hx/FS Hx/Imm Hx Previously Healthy: Yes - Surgical History Surgical History: Yes Surgery Procedure, Year, and Place: Bilateral foot surgery. tonsillectomy - Family History Known Family History: Positive: None - Pt denies FMHX, Non-Contributory Negative: Diabetes - Social History Occupation: Employed Full-time - [employer] Lives: With Family Alcohol Use: None Substance Use Type: None Smoking Status (MU): Never Smoked Tobacco - Pt vapes Have You Smoked in the Last Year: No - Immunization History Vaccination Up to Date: Yes Review of Systems All Other Systems Reviewed And Are Negative: Yes Constitutional: Positive: Negative Skin: Positive: Negative Eyes: Positive: Negative ENT: Positive: Negative Respiratory: Positive: Negative Cardiovascular: Positive: Negative Gastrointestinal: Positive: Negative Genitourinary: Positive: Negative Motor: Positive: Negative Neurovascular: Positive: Negative Musculoskeletal: Positive: Other: - left posterior neck Neurological/Mental Status: Positive: Negative Psychological: Positive: Negative Physical Exam - Summary Physical Exam Summary: Vital Signs Reviewed: Yes A+Ox3, hold head in slight flexion for comfort Eyes: Conjunctiva Clear, BRAYDEN. EOM intact and full ENT: Hearing grossly normal TM x 2 clear, mmoist, uvula midline, no exudate, no erythema Neck: supple No spinous process pain c/t/l/s + TTP left lateral paraspinal cervical muscle pain Pain with palpation along left trapezius + ROM with increase pain with left lateral rotation and extension Respiratory: Positive: No respiratory distress, No accessory muscle use + CTA throughout no w/r Cardiovascular: RRR nl s1, s2 no m/r CBT <2 sec 2+ radial b/l abd soft + BS nt/nd no guarding, no distension Musculoskeletal Exam: VILLALTA x 4 without difficulty - full strength + abduction shoulder + flex/ext elbow + flex/ext wrist Neurological: Positive: Alert, + sensation throughout + thumb up, + a ok + finger spread + finger cross Psychological: Positive: Normal Response To slot service specialist Skin: Positive: no rash, no ecchymosis Triage Information Reviewed: Yes Neck Pain Course/Dx - Course Course Of Treatment: Pt presents to reporting left paraspinal cervical pain - increases with direct palp, extension, left lateral rotation Distal CSM intact and full No concern for bony injury No neurologic deficit Suspect musculoskeletal spasm Will place soft collar Motrin/apap flexeril heat stretch work note strict return precaution encouraged decrease vape pt comfortable and in agreement with plan - Differential Dx/Diagnosis Provider Diagnosis: Muscle spasm, Cervical pain (neck) Discharge ED - Sign-Out/Discharge Documenting (check all that apply): Patient Departure All imaging exams completed and their final reports reviewed: No Studies - Discharge Plan Condition: Stable Disposition: HOME Prescriptions: Cyclobenzaprine (NF) [Cyclobenzaprine 5 MG (NF)] 5 mg PO TID PRN #10 tab PRN Reason: muscle spasm Ibuprofen 600 mg PO Q6HR PRN #20 tablet PRN Reason: Pain - Mild Patient Education Materials: Spasmodic Torticollis (ED), Muscle Spasm (ED) Forms: *Gen. Provider Communication, *Work Release Referrals: Thais Baltazar [Primary Care Provider] - Additional Instructions: - Okay to alternate ibuprofen (Advil, Motrin) 600mg and Tylenol every 3hours as needed for pain. Take with food. Do NOT take for more than 4-5 days. -Take flexeril - muscle relaxer as prescribed - this will make you drowsy - do not drive, operate machinery or drink alcohol while taking this medication -Apply moist heat to your back for 20 minutes at a time, 4-5 times a day. Once your muscles are warm, slow gentle stretching exercises are important -Wear neck collar for support -Contact your doctor today to arrange a follow-up appointment next week. -If you pain is uncontrolled or you develop arm weakness or other concerns - go to an emergency department for further treatment - Billing Disposition and Condition Condition: STABLE Disposition: Home
[2020-02-29] MEDS ORDERED: Ibuprofen TAB* 200 MG PO ONE (08:48)
== END 2020-02-29 09:14 | disposition home or self-care (01) ==
LOC: UCCORT 08:00
DX: M62.838 Other muscle spasm (principal); M54.2 Cervicalgia; Z91.018 Allergy to other foods; Z91.09 Other allergy status, other than to drugs and biological substances
CPT/HCPCS: 99213; A9270-GY; G0463